=== PATIENT | female | born 1970 | race Caucasian/White ===

== ENCOUNTER → 2020-10-22 | Outpatient (CLI) | payer BC | LOC: KOH-I 15:56 | DX: M25.512 Pain in left shoulder (principal); M47.812 Spondylosis without myelopathy or radiculopathy, cervical region | CPT/HCPCS: 72050 ==

== ENCOUNTER → 2020-10-30 | Outpatient (CLI) | payer BC | LOC: KOH-I 08:49 | DX: M47.22 Other spondylosis with radiculopathy, cervical region (principal); M25.512 Pain in left shoulder; R20.2 Paresthesia of skin | CPT/HCPCS: 72141 ==

== ENCOUNTER → 2020-11-18 | Outpatient (CLI) | payer BC | LOC: MAMO 10-22 15:30 | DX: Z12.31 Encounter for screening mammogram for malignant neoplasm of breast (principal) | CPT/HCPCS: 77063; 77067 ==

== ENCOUNTER → 2021-11-24 | Outpatient (CLI) | payer BC | LOC: MAMO 11-06 15:30 | DX: Z12.31 Encounter for screening mammogram for malignant neoplasm of breast (principal) | CPT/HCPCS: 77063; 77067 ==